=== PATIENT | male | born 1985 | race African-American/Black ===

== ENCOUNTER 2025-06-19 12:12 | Emergency (ER) | payer MEDICAID ==
[~2025-06-19] VITALS: Ht 167.6 cm; Wt 73.0 kg
[2025-06-19 12:20] VITALS: O2SAT 99
[2025-06-19] MEDS: CYCLOBENZAPRINE 10MG TABLET PO ONE (12:43)
[2025-06-19] MEDS: MORPHINE SULFATE 4 MG/ML INJ (FOR IV/IM USE) IV ONE ×2 (13:28→14:20)
[2025-06-19 13:45] LABS: BASOPHILS % 0.4 % (0.0-2.0); EOSINOPHILS % 1.1 % (0.0-5.0); HEMATOCRIT. 43.0 % (42.0-52.0); HEMOGLOBIN. 14.6 g/dL (14.0-18.0); LYMPHOCYTES % 9.9 % (20.0-50.0); MEAN PLATELET VOLUME 8.1 fl (7.4-10.4); MONOCYTES % 5.9 % (2.0-8.0); NEUTROPHILS % 82.7 % (40.0-76.0); PLATELET 341 x1000/uL (130-400); RED BLOOD CELL COUNT 4.48 mill/uL (4.7-6.1); RED CELL DISTRIBUTION WIDTH 13.0 % (11.6-14.6)
[2025-06-19 13:58] LABS: INR 1.0
[2025-06-19 14:01] LABS: CREATININE 1.2 mg/dL (0.6-1.3); UREA NITROGEN BLOOD 10 mg/dL (9-23)
[2025-06-19 14:03] LABS: ASPARTATE AMINOTRANSFERASE 41 IU/L (<34); BILIRUBIN DIRECT 0.2 mg/dL (<=3.0); BILIRUBIN TOTAL 0.8 mg/dL (0.1-1.0); PROTEIN TOTAL 6.9 g/dL (6.0-8.3)
[2025-06-19 14:54] VITALS: BP 122/89; PULSE 75; RESP 14; TEMP 36.8; O2SAT 100
== END 2025-06-19 15:18 | disposition short-term general hospital (02) ==
LOC: ER 12:24
DX: S12.200A Unspecified displaced fracture of third cervical vertebra, initial encounter for closed fracture (principal); Z79.899 Other long term (current) drug therapy; Y09 Assault by unspecified means; Y93.89 Activity, other specified; Y92.89 Other specified places as the place of occurrence of the external cause; Y99.8 Other external cause status
CPT/HCPCS: 80076; 80048; 85025; 85610; 85730; 36415; 70450; 72125; 72131; 96374; 96376; 99291; J2270; Z7610 ×3; A4606